=== PATIENT | male | born 1995 | race Caucasian/White ===

== ENCOUNTER 2019-06-22 18:22 | Inpatient (IN) | payer OTHER ==
[~2019-06-22] VITALS: Ht 177.8 cm; Wt 54.5 kg
[~2019-06-22 18:22] MED LIST: ETOMIDATE 40 MG/20 ML ONE; ROCURONIUM 10MG/ML,5ML ONE
--- NOTE | 2019-06-22 18:24 | NUR ---
ASSUMED CARE OF PATIENT IN TRAUMA 4. PT BIB FRIEND FOR ALOC. PIV STARTED AND NARCAN 0.4MG GIVEN IVP.
[2019-06-22] MEDS ORDERED: SODIUM CHLORIDE 0.9% 1,000ML IVBOLUS ONE (18:30)
[2019-06-22] MEDS ORDERED: NALOXONE 0.4 MG/ML, 1ML IVPush PRN (18:30)
[2019-06-22 18:56] LABS: MEAN CORPUSCULAR HEMOGLOBIN 30.3 pg (27.5-34.5); MEAN CORPUSCULAR HGB CONC 33.8 g/dL (33.2-36.2); MEAN CORPUSCULAR VOLUME 89.7 fL (81-97); MEAN PLATELET VOLUME 9.1 fL (7.4-10.4); PLATELET COUNT 290 x10^3/uL (130-400); RED BLOOD COUNT 5.31 x10^6/uL (4.38-5.82)
[2019-06-22 18:59] LABS: ALANINE AMINOTRANSFERASE 32 U/L (12-78); ALBUMIN 4.3 g/dL (3.4-5.0); ANION GAP 23 mmol/L (5-15); CALCIUM 7.6 mg/dL (8.5-10.1); CHLORIDE 109 mmol/L (98-107); CREATININE 1.17 mg/dL (0.7-1.3)
[2019-06-22 19:01] LABS: ALKALINE PHOSPHATASE 70 U/L (45-117); BILIRUBIN,TOTAL 0.3 mg/dL (0.2-1.0); TOTAL PROTEIN 7.9 g/dL (6.4-8.2)
[2019-06-22 19:02] LABS: SALICYLATE LEVEL < 1.7 mg/dL (2.8-20.0)
[2019-06-22] MEDS ORDERED: DEXTROSE 50%, 50ML SYRINGE ONE (19:06)
--- NOTE | 2019-06-22 19:10 | NUR ---
PT INTUBATED AT THIS TIME BY DR GUTIERREZ
[2019-06-22] MEDS ORDERED: PROPOFOL 100 ML IV PRN (19:30)
[2019-06-22] MEDS ORDERED: DEXTROSE 50%, 50ML SYRINGE IVPush ONE (19:30)
[2019-06-22] MEDS ORDERED: ETOMIDATE 40 MG/20 ML IVPush ONE (19:30)
[2019-06-22] MEDS ORDERED: VECURONIUM 10 MG IVPush ONE (19:30)
[2019-06-22 19:31] LABS: MD YES
[2019-06-22 19:35] LABS: <PLATELET ESTIMATE> ADEQUATE; <PLT MORPHOLOGY> NORMAL PLT MORPH; <RBC MORPHOLOGY> NORMAL; BAND#(MANUAL) 2.81 x10^3/uL; BANDS%(MANUAL) 12 % (0-7); LYMPH#(MANUAL) 1.64 x10^3/uL (1-3.4); LYMPHS% (MANUAL) 7 % (22-44); MONOS#(MANUAL) 0.94 x10^3/uL (0.3-2.7); MONOS% (MANUAL) 4 % (2-9); SEG#(MANUAL) 18.02 x10^3/uL (1.8-6.8); SEGS% (MANUAL) 77 % (42-75)
--- NOTE | 2019-06-22 19:37 | NUR ---
TUBE 8.0 AT 24, RATE 16 TV 500 PEEP 5 70% FIO2
--- NOTE | 2019-06-22 19:55 | NUR ---
RODRIGUEZ AND OG PLACED
[2019-06-22] MEDS ORDERED: SODIUM BICARBONATE 8.4% 150 MEQ in DEXTROSE 5% 1,000 ML IV SCH ×2 (20:00→23:30)
[2019-06-22 20:06] LABS: AMPHETAMINE SCREEN, URINE Negative (Negative); BARBITURATE SCREEN, URINE Negative (Negative); BENZODIAZEPINE SCREEN, URINE Positive (Negative); CANNABINOID SCREEN, URINE Positive (Negative); COCAINE SCREEN, URINE Positive (Negative); METHADONE SCREEN, URINE Negative (Negative); OPIATE SCREEN, URINE Negative (Negative)
[2019-06-22] MEDS ORDERED: PHARMACY MAY ADJ FOR RENAL FX MC SCH (20:30)
[2019-06-22] MEDS ORDERED: FAMOTIDINE 20 MG/2 ML IV SCH (20:30)
[2019-06-22] MEDS ORDERED: LIDOCAINE-MPF 1%, 2ML ENDO PRN (20:30)
[2019-06-22] MEDS ORDERED: HEPARIN 5,000 UNITS/ML, 1ML SQ SCH (20:30)
--- NOTE | 2019-06-22 20:35 | NUR ---
BACK FROM CT AT THIS TIME, CHEST X RAY CONFIRMED ET TUBE PLACEMENT, 2ND PIV PLACED TO RIGHT AC, PT VSS AND SUFFICENTLY SEDATED AT THIS TIME
--- NOTE | 2019-06-22 20:39 | NUR ---
FAMILY AT AWAITING ADMIT TO ICU, ADMITTING MD IN TO SEE PT AND PULMO DR CRAWFORD,
[2019-06-22 20:55] LABS: ACETONE, SERUM Negative (Negative)
[2019-06-22] MEDS ORDERED: LABETALOL 5MG/ML, 20ML IVPush PRN (21:00)
[2019-06-22] MEDS ORDERED: FAMOTIDINE 20 MG/2 ML IVPush SCH (21:00)
[2019-06-22] MEDS ORDERED: ONDANSETRON 2MG/ML, 2ML IVPush PRN (21:00)
[2019-06-22] MEDS ORDERED: THIAMINE 200 MG in SODIUM CHLORIDE 0.9% 50 ML IV ONE (21:30)
--- NOTE | 2019-06-22 21:32 | NUR ---
REPORT TO EMILT IN CCU,PT TO BE PLACED ON TRANSPORT MONITORS TO CCU
[2019-06-22 22:38] LABS: ANION GAP 10 mmol/L (5-15); CHLORIDE 110 mmol/L (98-107); CREATININE 0.92 mg/dL (0.7-1.3)
[2019-06-22] MEDS: ENOXAPARIN 40 MG/0.4 ML SQ SCH (23:21)
[2019-06-22] MEDS: AMPICILLIN/SULBACTAM 3 GM in SODIUM CHLORIDE 0.9% 100 ML IV SCH (23:21)
[2019-06-22] MEDS: PROPOFOL 100 ML IV PRN (23:37)
[2019-06-22] MEDS: POTASSIUM CHLORIDE 20 MEQ, MAGNESIUM SULFATE 1 GM, THIAMINE 200 MG, FOLIC ACID 1 MG, MV... IV SCH (23:39)
[2019-06-23] MEDS: FENTANYL PF 100 MCG/2ML IVPush PRN ×5 (00:39→09:05)
[2019-06-23] MEDS ORDERED: LACTATED RINGERS 1,000 ML IV SCH (01:00)
[2019-06-23] MEDS ORDERED: SODIUM PHOSPHATE 30 MMOL in SODIUM CHLORIDE 0.9% 500 ML IV ONE (01:00)
[2019-06-23 02:27] LABS: MICROSCOPIC AUTO
[2019-06-23 02:29] LABS: CULTURE INDICATED? NO
[2019-06-23] MEDS ORDERED: LACTATED RINGERS 1,000 ML IVBOLUS ONE (03:30)
[2019-06-23 05:00] LABS: BASOPHILS # (AUTO) 0.02 x10^3/uL (0-0.1); BASOPHILS % (AUTO) 0 % (0-1); EOSINOPHILS # (AUTO) 0.01 x10^3/uL (0-0.4); EOSINOPHILS % (AUTO) 0 % (1-7); LYMPHOCYTES # (AUTO) 3.11 x10^3/uL (1-3.4); LYMPHOCYTES % (AUTO) 31 % (22-44); MD NO; MEAN CORPUSCULAR HEMOGLOBIN 30.4 pg (27.5-34.5); MEAN CORPUSCULAR HGB CONC 34.8 g/dL (33.2-36.2); MEAN CORPUSCULAR VOLUME 87.5 fL (81-97); MEAN PLATELET VOLUME 9.4 fL (7.4-10.4); MONOCYTES # (AUTO) 0.87 x10^3/uL (0.2-0.8); MONOCYTES % (AUTO) 9 % (2-9); NEUTROPHILS # (AUTO) 5.95 x10^3/uL (1.8-6.8); NEUTROPHILS % (AUTO) 60 % (42-75); PLATELET COUNT 165 x10^3/uL (130-400); RED BLOOD COUNT 3.97 x10^6/uL (4.38-5.82); RED CELL DISTRIBUTION WIDTH 12.8 % (9.4-14.8)
[2019-06-23] MEDS: AMPICILLIN/SULBACTAM 3 GM in SODIUM CHLORIDE 0.9% 100 ML IV SCH ×4 (05:12→23:12)
[2019-06-23 05:14] LABS: ANION GAP 7 mmol/L (5-15); CALCIUM 7.4 mg/dL (8.5-10.1); CHLORIDE 113 mmol/L (98-107); CREATININE 0.78 mg/dL (0.7-1.3)
[2019-06-23] MEDS: PROPOFOL 100 ML IV PRN ×2 (05:22→06:39)
[2019-06-23] MEDS ORDERED: D5%-0.45NACL+KCL 20MEQ 1,000 ML IV SCH (05:30)
[2019-06-23] MEDS ORDERED: POTASSIUM CHLORIDE 10% 40 MEQ/30 ML UDC PO ONE (05:30)
[2019-06-23] MEDS ORDERED: DEXTROSE 4 GM TAB.CHEW PO PRN (05:30)
[2019-06-23] MEDS ORDERED: DEXTROSE 50%, 50ML SYRINGE IVPush PRN (05:30)
[2019-06-23] MEDS ORDERED: GLUCAGON 1 MG IM PRN (05:30)
[2019-06-23] MEDS ORDERED: DEXMEDETOMIDINE 200 MCG in SODIUM CHLORIDE 0.9% 48 ML IV PRN (07:00)
[2019-06-23] MEDS: SODIUM CHLORIDE FLUSH 10ML SYR IVF SCH ×2 (09:02→20:09)
[2019-06-23 17:24] VITALS: BP 133/75
[2019-06-23] MEDS: ACETAMINOPHEN 325 MG TABLET PO PRN (17:28)
[2019-06-23] MEDS: NICOTINE 21 MG/24 HR PATCH.TD24 TD SCH (17:28)
[2019-06-23] MEDS ORDERED: SODIUM BICARBONATE 8.4% 150 MEQ in DEXTROSE 5% 1,000 ML IV SCH (20:00)
[2019-06-23] MEDS: ENOXAPARIN 40 MG/0.4 ML SQ SCH (23:15)
[2019-06-24] MEDS: POTASSIUM CHLORIDE 20 MEQ, MAGNESIUM SULFATE 1 GM, THIAMINE 200 MG, FOLIC ACID 1 MG, MV... IV SCH (00:20)
[2019-06-24 00:28] VITALS: BP 136/82
[2019-06-24] MEDS: AMPICILLIN/SULBACTAM 3 GM in SODIUM CHLORIDE 0.9% 100 ML IV SCH (05:48)
[2019-06-24 06:48] LABS: FIO2 RA %
[2019-06-24 06:53] LABS: BASOPHILS # (AUTO) 0.04 x10^3/uL (0-0.1); BASOPHILS % (AUTO) 1 % (0-1); EOSINOPHILS # (AUTO) 0.04 x10^3/uL (0-0.4); EOSINOPHILS % (AUTO) 1 % (1-7); LYMPHOCYTES # (AUTO) 1.75 x10^3/uL (1-3.4); LYMPHOCYTES % (AUTO) 29 % (22-44); MD NO; MEAN CORPUSCULAR HEMOGLOBIN 30.6 pg (27.5-34.5); MEAN CORPUSCULAR HGB CONC 34.4 g/dL (33.2-36.2); MEAN CORPUSCULAR VOLUME 88.8 fL (81-97); MEAN PLATELET VOLUME 9.2 fL (7.4-10.4); MONOCYTES # (AUTO) 0.57 x10^3/uL (0.2-0.8); MONOCYTES % (AUTO) 10 % (2-9); NEUTROPHILS # (AUTO) 3.58 x10^3/uL (1.8-6.8); NEUTROPHILS % (AUTO) 60 % (42-75); PLATELET COUNT 185 x10^3/uL (130-400); RED BLOOD COUNT 4.38 x10^6/uL (4.38-5.82); RED CELL DISTRIBUTION WIDTH 12.7 % (9.4-14.8)
[2019-06-24] MEDS ORDERED: POTASSIUM CHLORIDE 20 MEQ TAB.ER.PRT PO ONE ×2 (07:00→10:00)
[2019-06-24 07:01] LABS: ANION GAP 7 mmol/L (5-15); CALCIUM 7.8 mg/dL (8.5-10.1); CHLORIDE 110 mmol/L (98-107); CREATININE 0.65 mg/dL (0.7-1.3)
[2019-06-24 08:02] VITALS: BP 115/69
[2019-06-24] MEDS: ACETAMINOPHEN 325 MG TABLET PO PRN (09:04)
[2019-06-24] MEDS: NICOTINE 21 MG/24 HR PATCH.TD24 TD SCH (09:04)
[2019-06-24] MEDS: SODIUM CHLORIDE FLUSH 10ML SYR IVF SCH (09:05)
[2019-06-24] MEDS ORDERED: AMOXICILLIN/CLAV 875-125MG TABLET PO SCH (12:00)
[2019-06-24 14:00] VITALS: BP 126/77
[2019-06-24] MEDS ORDERED: AMOX1TAB12 PO (15:07)
== END 2019-06-24 18:30 | disposition home or self-care (01) | DRG 917 ==
LOC: EDBD 18:22 → SUATTDRO 19:34 → ED 20:30 → EDIP 20:40 → ED 21:09 → CCU 21:47 → 3N 06-23 15:25
PROVIDERS: ADMIT Hospitalist; ATTEND Hospitalist
PROC: 5A1935Z Respiratory Ventilation, Less than 24 Consecutive Hours (ICD-10-PCS; principal; 2019-06-22)
PROC: 0BH17EZ Insertion of Endotracheal Airway into Trachea, Via Natural or Artificial Opening (ICD-10-PCS; 2019-06-22)
PROC: 0T9B70Z Drainage of Bladder with Drainage Device, Via Natural or Artificial Opening (ICD-10-PCS; 2019-06-22)
DX: T40.5X1A Poisoning by cocaine, accidental (unintentional), initial encounter (principal); G92 Toxic encephalopathy; J96.01 Acute respiratory failure with hypoxia; E87.2 Acidosis; R45.851 Suicidal ideations; F19.20 Other psychoactive substance dependence, uncomplicated; D72.825 Bandemia; F12.90 Cannabis use, unspecified, uncomplicated; F14.10 Cocaine abuse, uncomplicated; F32.9 Major depressive disorder, single episode, unspecified; G31.2 Degeneration of nervous system due to alcohol; J32.0 Chronic maxillary sinusitis; Y90.3 Blood alcohol level of 60-79 mg/100 ml; G47.00 Insomnia, unspecified; T42.4X1A Poisoning by benzodiazepines, accidental (unintentional), initial encounter; T40.7X1A Poisoning by cannabis (derivatives), accidental (unintentional), initial encounter; Y92.89 Other specified places as the place of occurrence of the external cause; Z68.1 Body mass index [BMI] 19.9 or less, adult; Z99.11 Dependence on respirator [ventilator] status; Z81.8 Family history of other mental and behavioral disorders
CPT/HCPCS: 31500; 36415; 36600; 96361; 96374; 96375; 99291; J3490; 70450; 71045; 80048; 80053; 80307; 81001; 82010; 82803; 82962; 83605; 83735; 83930; 84100; 84443; 84478; 85025; 87040; 87070; 87081; 87205; 93005; 94002; 94003; G0378; J0295; J1650; J2310; J2704; J3010; J3411; J3475; J3480; J7070; J7030; J7040; J7120